=== PATIENT | female | born 1980 | race Hispanic/Latino ===

== ENCOUNTER 2018-08-12 20:20 | Emergency (ER) | payer OTHER ==
[2018-08-12] MEDS ORDERED: DIPHENHYDRAMINE HCL 25 MG CAPSULE ONE (21:46)
[2018-08-12] MEDS ORDERED: CLINDAMYCIN HCL 150 MG CAP ONE (21:46)
[2018-08-12] MEDS ORDERED: METHYLPREDNISOLONE SOD SUCC 125MG/2ML VIAL ONE (21:46)
== END 2018-08-12 22:47 | disposition home or self-care (01) ==
LOC: EDH 20:20
DX: R60.0 Localized edema (principal); L53.9 Erythematous condition, unspecified; Z98.890 Other specified postprocedural states
CPT/HCPCS: 96372; 99283; J2930; Q0163